=== PATIENT | male | born 1950 | race Caucasian/White ===

== ENCOUNTER 2017-06-29 06:03 | Day surgery (SDC) | payer BC, OTHER ==
--- NOTE | 2017-06-25 18:28 | HP ---
CC: Dr. Julio Holley; [facility]; Dr. Meyers.* ADMITTING HISTORY AND PHYSICAL: DATE OF ADMISSION: 06/29/17 ADMITTING DIAGNOSES: 1. Urinary retention. 2. Bladder calculi. 3. Bladder lesions. PLANNED PROCEDURE: Cystoscopy, bladder biopsies and fulguration, fragmentation and removal of bladder calculi, possible laser. SURGEON: Dr. Meyers. HISTORY OF PRESENT ILLNESS: Javier Leonard is a 66-year-old gentleman, who had originally been evaluated last year for history of gross hematuria and urinary retention. He was diagnosed as having a flaccid neurogenic bladder and has been managed with indwelling Beck catheter. Even on his initial cystoscopy , he appeared to have abnormality involving the anterior bladder wall, which is usually not area of the bladder that is affected by the Ebck catheter and this had persisted throughout all his evaluations. In addition to the changes involving the anterior bladder wall on the most recent cystoscopy, he was noted to have 2 bladder calculi, which was a new finding. He is now being brought in for management of these 2 conditions. PAST MEDICAL HISTORY: Significant for cirrhosis, hypertension, hyperlipidemia, chronic kidney disease, and thrombocytopenia. MEDICATIONS ON ADMISSION: 1. Lasix 20 mg daily. 2. Spironolactone 50 mg daily. 3. Klor-Con 10 mEq 2 tablets daily. 4. ProAir 2 puffs every 6 hours as needed for shortness of breath. 5. Amarilis 1 tablet daily. 6. Cipro, which he has currently started prior to this procedure. ALLERGIES: No known drug allergies. PHYSICAL EXAMINATION GENERAL: Reveals a pleasant middle-aged gentleman. VITAL SIGNS: Blood pressure is 150/80, pulse 58 per minute, oxygen saturation 98% on room air. LUNGS: Clear bilaterally. CARDIOVASCULAR: Regular rate and rhythm. S1 and S2. ABDOMEN: Soft without masses. A Beck catheter is in place draining clear urine. IMPRESSION: A 66-year-old gentleman with above described abnormality involving the anterior bladder wall and 2 bladder calculi. PLAN: Planned procedure is cystoscopy, bladder biopsies and fulguration and fragmentation and removal of bladder calculi, possible laser. [id number]/[facility] #: [id number] [facility]
[~2017-06-29 06:03] MED LIST: Buffered Lidocaine 0.9% SYRIN* 5 ML/SYR SYRINGE INTRADERM ONE
[2017-06-29] MEDS ORDERED: Buffered Lidocaine 0.9% SYRIN* 5 ML/SYR SYRINGE ONE (06:15)
[2017-06-29] MEDS ORDERED: cefTRIAXone(*) 2 GM ADDV.VIAL IVPB ONE (06:15)
[2017-06-29] MEDS ORDERED: Gentamicin ADULT (*) 140 MG in NS 0.9% 100 ML* 100 ML IVPB ONE (07:00)
[2017-06-29] MEDS ORDERED: Midazolam* 1 MG/ML 2 ML VIAL (2 MG) ONE ×2 (07:31→08:21)
[2017-06-29] MEDS ORDERED: fentaNYL* 50 MCG/ML 2 ML VIAL (100 MCG VIAL) ONE (07:31)
[2017-06-29] MEDS ORDERED: Ondansetron INJ* 2 MG/ML VIAL IV PRN (07:54)
[2017-06-29] MEDS ORDERED: HYDROmorphone INJ* 1 MG/ML CARPUJECT SYRINGE IV PRN (07:54)
[2017-06-29] MEDS ORDERED: oxyCODONE/Acetamin 5/325 MG* TAB PO PRN (07:54)
[2017-06-29] MEDS ORDERED: fentaNYL* 50 MCG/ML 2 ML VIAL (100 MCG VIAL) IV PRN (07:54)
[2017-06-29] MEDS ORDERED: Naloxone* 0.4 MG/ML 1 ML VIAL IV PRN (07:54)
[2017-06-29] MEDS ORDERED: Chloroprocaine 2%* 20 ML VIAL ONE (08:03)
[2017-06-29] MEDS ORDERED: Lidocaine 2% PF* 10 ML AMP ONE (08:03)
[2017-06-29 10:35] VITALS: BP 139/68
--- NOTE | 2017-06-29 12:31 | OP ---
DATE OF OPERATION: 06/29/17 - [facility] DATE OF : 54 SURGEON: Porfirio Meyers MD. ANESTHESIOLOGIST: Dr. Beauchamp. ANESTHESIA: Spinal. PRE-OP DIAGNOSES: 1. Urinary retention. 2. Bladder calculi. 3. Bladder lesions. POST-OP DIAGNOSES: 1. Urinary retention. 2. Bladder calculi. 3. Bladder lesions. OPERATIVE PROCEDURES: 1. Cystoscopy, bladder biopsies, and fulguration (2 to 3 cm). 2. Fragmentation and removal of bladder calculi. COMPLICATIONS: None. POSTOPERATIVE CONDITION: Stable. CATHETER: An 18-Kosovan Beck. OPERATIVE FINDINGS: 1. Normal appearing urethra. 2. Mildly enlarged prostate. 3. Predominantly median lobe enlargement. 4. Multiple bladder calculi. 5. Area of thickened, hyperemic mucosa, anterior bladder wall, right side. POSTOPERATIVE CONDITION: Stable. INDICATIONS: Javier Leonard is a 66-year-old gentleman with urinary retention and the above described findings. DESCRIPTION OF PROCEDURE: After induction of spinal anesthesia, the patient was placed in dorsal lithotomy position. Sequential compression devices were in place and functioning. Initial cystoscopy revealed a normal-appearing urethra and mildly enlarged, predominant median lobe enlargement, prostate. The bladder was examined. There was some expected irritation secondary to the indwelling Beck in the posterior bladder wall and multiple bladder calculi were noted. These were fragmented using the stone crushing forceps and all the fragments were irrigated out. Next, attention was directed to the area on the anterior bladder wall, predominantly on the right side, where the mucosa was thickened and hyperemic. [employer] [employer] biopsies were obtained and sent for histopathology. Next, using the Bugbee electrocautery, this area was carefully fulgurated for hemostasis. At the end of the procedure, an 18-Kosovan Beck was placed without difficulty and connected to a drainage bag. The patient tolerated the procedure satisfactorily and was transferred back to the recovery area in stable condition. [id number]/[facility] #: [id number] [facility]
== END 2017-06-29 11:09 | disposition home or self-care (01) ==
LOC: OR 06:03
PROVIDERS: ATTEND Urology
DX: N21.0 Calculus in bladder (principal); R33.8 Other retention of urine; N32.9 Bladder disorder, unspecified; N31.9 Neuromuscular dysfunction of bladder, unspecified; N18.9 Chronic kidney disease, unspecified; I12.9 Hypertensive chronic kidney disease with stage 1 through stage 4 chronic kidney disease, or unspecified chronic kidney disease; Z68.32 Body mass index [BMI] 32.0-32.9, adult; E78.5 Hyperlipidemia, unspecified; K74.60 Unspecified cirrhosis of liver; D69.6 Thrombocytopenia, unspecified
CPT/HCPCS: 88305; J0696; J1580; J2001; J2250; J2400; J3010